=== PATIENT | male | born 1990 | race Caucasian/White ===

== ENCOUNTER 2017-11-04 14:00 | Emergency (ER) | payer BC | END 2017-11-04 17:16 | disposition home or self-care (01) | LOC: E/R 14:00 | DX: J45.20 Mild intermittent asthma, uncomplicated (principal) | CPT/HCPCS: 99284 ==

== ENCOUNTER 2018-06-03 13:59 | Emergency (ER) | payer OTHER, BC | END 2018-06-03 16:38 | disposition home or self-care (01) | LOC: FTE 16:38 | DX: R06.02 Shortness of breath (principal); F17.210 Nicotine dependence, cigarettes, uncomplicated | CPT/HCPCS: 70360; 71045; 93005; 99284-25 ==

== ENCOUNTER 2018-06-06 03:03 | Emergency (ER) | payer OTHER ==
[2018-06-06] MEDS: ONDANSETRON (ODT) 4 MG TAB ODT (03:54)
== END 2018-06-06 05:52 | disposition home or self-care (01) ==
LOC: FTE 03:03
DX: J02.9 Acute pharyngitis, unspecified (principal); F17.210 Nicotine dependence, cigarettes, uncomplicated; F90.9 Attention-deficit hyperactivity disorder, unspecified type; R59.9 Enlarged lymph nodes, unspecified
CPT/HCPCS: 70490; 99284-25

== ENCOUNTER 2019-05-19 04:50 | Emergency (ER) | payer OTHER ==
[2019-05-19] MEDS: ASPIRIN 325 MG TAB PO (06:04)
== END 2019-05-19 07:10 | disposition home or self-care (01) ==
LOC: FTE 04:50
DX: R06.02 Shortness of breath (principal); F41.9 Anxiety disorder, unspecified
CPT/HCPCS: 36415; 71046; 80053; 80307; 83880; 84484; 85025; 85610; 85730; 93005; 99285-25